=== PATIENT | female | born 1995 | race Two or more races ===

== ENCOUNTER 2020-10-03 10:29 | Emergency (ER) | payer MEDICAID, OTHER ==
[~2020-10-03] VITALS: Ht 157.5 cm; Wt 81.6 kg
[2020-10-03 10:49] VITALS: BP 111/77
[2020-10-03 11:42] LABS: Basophils # (auto) 0 10 ^3/uL (0-0.2); Basophils % (auto) 0.7 % (0.0-2.0); Eosinophils # (auto) 0.1 10 ^3/uL (0-0.8); Eosinophils % (auto) 2.8 % (0.0-7.0); Hematocrit 40.7 % (36.0-46.0); Hemoglobin 13.7 g/dL (12.2-16.2); Lymphocytes # (auto) 1.7 10 ^3/uL (0.4-5.4); Lymphocytes % (auto) 39.4 % (10.0-50.0); Mean Corpuscular Hemoglobin 30.2 pg (28.0-32.0); Mean Corpuscular Hgb Conc. 33.6 g/dL (32.0-36.0); Mean Corpuscular Volume 89.7 fL (80.0-100.0); Monocytes # (auto) 0.4 10 ^3/uL (0-1.3); Monocytes % (auto) 9.2 % (0.0-12.0); Neutrophils # (auto) 2.1 10 ^3/uL (1.6-8.6); Neutrophils % (auto) 47.9 % (37.0-80.0); Nucleated Red Blood Cells % 0.2 %; Red Blood Cells 4.54 10^6/uL (4.0-5.20); Red Cell Distribution Width 13.4 % (11.8-14.3); White Blood Cell 4.3 10^3/uL (4.4-10.8)
[2020-10-03 12:06] LABS: Albumin 3.8 g/dL (3.4-5.0); Calcium 8.7 mg/dL (8.5-10.1); Potassium 3.8 mmol/L (3.5-5.1)
[2020-10-03 12:10] LABS: BUN/Creatinine Ratio 16.4; Bilirubin, Total 0.3 mg/dL (0.2-1.0); Total Protein 7.6 g/dL (6.4-8.2)
== END 2020-10-03 12:49 | disposition home or self-care (01) ==
LOC: ER 10:29
DX: R20.0 Anesthesia of skin (principal); Z87.891 Personal history of nicotine dependence; Z90.49 Acquired absence of other specified parts of digestive tract
CPT/HCPCS: 36415; 70450; 80053; 85025

== ENCOUNTER 2020-12-29 19:38 | Emergency (ER) | payer MEDICAID ==
[~2020-12-29] VITALS: Ht 157.5 cm; Wt 81.6 kg
[2020-12-29 19:40] VITALS: BP 112/76
[2020-12-29] MEDS ORDERED: HYDROcodone-ACET 10/325MG TAB PO ONE (21:45)
[2020-12-29] MEDS ORDERED: IBUPROFEN 800 MG TAB PO ONE (21:45)
== END 2020-12-29 22:17 | disposition home or self-care (01) ==
LOC: ER 19:38
DX: M25.551 Pain in right hip (principal); M24.852 Other specific joint derangements of left hip, not elsewhere classified; M53.3 Sacrococcygeal disorders, not elsewhere classified; J45.909 Unspecified asthma, uncomplicated; Z90.49 Acquired absence of other specified parts of digestive tract; Z87.891 Personal history of nicotine dependence
CPT/HCPCS: 72192

== ENCOUNTER 2023-10-27 09:14 | Emergency (ER) | payer MEDICAID ==
[~2023-10-27] VITALS: Ht 157.5 cm; Wt 87.2 kg
[2023-10-27 09:19] VITALS: TEMP 97.6
[2023-10-27 09:27] VITALS: BP 103/65; PULSE 77; RESP 18; O2SAT 97
[2023-10-27] MEDS ORDERED: NAP500T PO (11:32)
== END 2023-10-27 11:33 | disposition home or self-care (01) ==
LOC: ER 09:14
DX: M72.2 Plantar fascial fibromatosis (principal); J45.909 Unspecified asthma, uncomplicated; Z90.49 Acquired absence of other specified parts of digestive tract; Z87.891 Personal history of nicotine dependence
CPT/HCPCS: 73630